=== PATIENT | female | born 1990 | race Caucasian/White ===

== ENCOUNTER 2020-09-28 12:25 | Inpatient (IN) | payer OTHER ==
[~2020-09-28] VITALS: Ht 160 cm; Wt 56.7 kg
[2020-09-28 12:26] VITALS: BP 141/89
[2020-09-28 12:50] LABS: URINE BILIRUBIN NEGATIVE (Negative); URINE BLOOD 3+ (Negative); URINE CLARITY SL CLOUDY; URINE COLOR YELLOW; URINE GLUCOSE-RANDOM* NEGATIVE (Negative); URINE KETONES NEGATIVE (Negative); URINE LEUKOCYTES-REFLEX 2+ (Negative); URINE NITRITE-REFLEX NEGATIVE (Negative); URINE PROTEIN (DIPSTICK) 2+ (Negative); URINE UROBILINOGEN 0.2 E.U./dl (0.2-1.0)
[2020-09-28] MEDS ORDERED: VITAMIN B-121000 MC2 PO (12:50)
[2020-09-28] MEDS ORDERED: NOXIFOL-D32500 UNIT PO (12:51)
[2020-09-28] MEDS ORDERED: IRON18 M1 PO (12:52)
[2020-09-28] MEDS ORDERED: SODIUM BICARBO650 M3 PO (12:52)
[2020-09-28] MEDS ORDERED: NORETHINDRONE AC5 M2 PO (12:53)
[2020-09-28] MEDS ORDERED: NORVASC5 MG PO (12:53)
[2020-09-28 13:00] LABS: LYMPHOCYTES 22.4 % (24.0-44.0); WBC 5.3 thou/uL (4.0-11.0)
[2020-09-28 13:02] LABS: ABSOLUTE NEUTROPHILS 3.7 thou/uL (1.4-8.2); BASOPHILS 0.6 % (0.0-2.0); EOSINOPHILS 2.1 % (0.0-3.0); MCH 31.9 pg (26.0-34.0); MCHC 34.4 g/dL (28.0-37.0); MCV 92.9 fL (80.0-100.0); MONOCYTES 4.6 % (1.0-8.0); PLATELET COUNT 218 thou/uL (150-400); POLYS 70.3 % (36.0-66.0); RBC 2.03 mil/uL (4.20-5.00); RDW 13.4 % (10.5-14.5)
[2020-09-28 13:03] LABS: CALCIUM 7.2 mg/dL (8.5-10.1); CREATININE 5.5 mg/dL (0.6-1.0); POTASSIUM 3.8 mmol/L (3.5-5.1)
[2020-09-28 13:04] LABS: HEMATOCRIT 18.9 % (37.0-47.0)
[2020-09-28 13:05] LABS: HEMOGLOBIN 6.5 gm/dL (12.0-15.0)
[2020-09-28 13:16] LABS: CASTS None Seen /LPF (None Seen); SQUAMOUS >10 Many /LPF (0-3)
[2020-09-28 13:18] LABS: BACTERIA-REFLEX 1-9 Few /HPF (None Seen); CRYSTALS None Seen /LPF (None Seen)
[2020-09-28 13:19] LABS: WBC CLUMPS Few (None Seen)
[2020-09-28 14:42] VITALS: BP 122/95
--- NOTE | 2020-09-28 15:35 | NUR ---
VERBAL AND WRITTEN CONSENT FOR A BLOOD TRANFUSION WAS OBTAINED FROM THE PT. PT STATED SHE HAD A PRIOR BLOOD TRANSFUSION IN 2020 AND DID NOT HAVE ANY ADVERSE REACTIONS.
[2020-09-28 15:47] VITALS: BP 139/93; BP 142/93; BP 142/94; BP 146/95
[2020-09-28 19:34] LABS: HEMOGLOBIN 6.8 gm/dL (12.0-15.0)
[2020-09-28 19:35] LABS: HEMATOCRIT 19.5 % (37.0-47.0)
--- NOTE | 2020-09-28 19:40 | NUR ---
DR MORALES PAGED REGARDING CRITICAL LABS
[2020-09-29] VITALS (7 sets, daily range): BP systolic 135–179; BP diastolic 11–110
[2020-09-29 05:38] LABS: CALCIUM 7.3 mg/dL (8.5-10.1); CREATININE 4.9 mg/dL (0.6-1.0); POTASSIUM 3.9 mmol/L (3.5-5.1)
[2020-09-29 06:06] LABS: HEMOGLOBIN 6.8 gm/dL (12.0-15.0); RBC 2.13 mil/uL (4.20-5.00)
[2020-09-29 06:08] LABS: MCH 31.7 pg (26.0-34.0); MCHC 34.2 g/dL (28.0-37.0); MCV 92.8 fL (80.0-100.0); RDW 13.8 % (10.5-14.5); WBC 5.6 thou/uL (4.0-11.0)
[2020-09-29 06:12] LABS: HEMATOCRIT 19.8 % (37.0-47.0)
--- NOTE | 2020-09-29 06:54 | NUR ---
Patient is asymptomatic. Blood increased to 120 ml/hr
--- NOTE | 2020-09-29 07:07 | NUR ---
ATTEMPTED TO CALL REPORT. WAS PLACED ON HOLD. NO ONE ANSWERED THE PHONE. DAY CHARGE NURSE NOTIFIED THAT PATIENT COULD BE TRANSPORTED AND THE FLOOR CAN CALL BACK FOR REPORT
--- NOTE | 2020-09-29 11:03 | NUR ---
UNIT OF BLOOD THAT WAS STARTED IN THE ED COMPLETED AT 0930 WITH OUT ANY ISSUES OR REACTIONS.
[2020-09-29 12:57] LABS: HEMATOCRIT 24.3 % (37.0-47.0); HEMOGLOBIN 8.3 gm/dL (12.0-15.0)
--- NOTE | 2020-09-30 04:42 | NUR ---
PT BEEN RESTING IN NO ACUTE DISTRESS.A/OX4.PT BEEN SLEEPING MOST OF THE NOC W/O ANY CONCERNS JUST A LITTLE WORRIED OF HER HEALTH AND HER KIDS HOPING TO GO HOME TODAY AND MAYBE SEE HER DOCTOR'S AT [facility].EMOTIONAL SUPPORT PROVIDED.PT STATED THAT IT SEEMS LIKE THE NEW MEDICINE THAT SHE WAS ORDERED IS HELPING SINCE SHE HASNT BEEN BLEEDING HEAVILY TONIGHT.DENIES ANY OTHER CONCERNS.WILL CONT TO MONITOR PER POC.
[2020-09-30 05:28] LABS: HEMATOCRIT 22.8 % (37.0-47.0); HEMOGLOBIN 7.9 gm/dL (12.0-15.0); MCH 31.8 pg (26.0-34.0); MCHC 34.7 g/dL (28.0-37.0); MCV 91.8 fL (80.0-100.0); RBC 2.49 mil/uL (4.20-5.00); RDW 13.9 % (10.5-14.5); WBC 6.6 thou/uL (4.0-11.0)
[2020-09-30 05:50] LABS: CALCIUM 7.5 mg/dL (8.5-10.1); CREATININE 4.6 mg/dL (0.6-1.0)
[2020-09-30 06:23] VITALS: BP 152/100
[2020-09-30 08:00] VITALS: BP 164/101
[2020-09-30 08:20] VITALS: BP 164/101
[2020-09-30] MEDS ORDERED: MEDROXYPROGEST2.5 MG PO (09:15)
[2020-09-30 10:04] VITALS: BP 164/101
--- NOTE | 2020-09-30 10:55 | NUR ---
Assumed pt care at 7am.Pt in bed resting and very anxious about going home today.Assessment completed.vss but elevated bp noted. Norvasc given with am meds.Dr Tilley here,dc order noted.Dc summary compile and reviewed with pt. At 1030,pt dc [place] accompanied by hat finisher.
[2020-09-30] MEDS ORDERED: NORVASC5 MG PO (13:37)
[2020-10-01] MEDS ORDERED: MEDROXYPROGEST2.5 MG PO (12:17)
== END 2020-09-30 10:30 | disposition home or self-care (01) | DRG 760 ==
LOC: ER 12:25 → EROBS 15:39 → 4W 17:00 → EROBS 17:00 → 4W 09-29 07:12
PROVIDERS: Nurse Practitioner; Nurse Practitioner Acute Care; ADMIT Internal Medicine; ATTEND Internal Medicine
PROC: 30233N1 Transfusion of Nonautologous Red Blood Cells into Peripheral Vein, Percutaneous Approach (ICD-10-PCS; principal; 2020-09-28)
DX: N93.9 Abnormal uterine and vaginal bleeding, unspecified (principal); D62 Acute posthemorrhagic anemia; N17.9 Acute kidney failure, unspecified; N39.0 Urinary tract infection, site not specified; I12.0 Hypertensive chronic kidney disease with stage 5 chronic kidney disease or end stage renal disease; N18.5 Chronic kidney disease, stage 5; N92.1 Excessive and frequent menstruation with irregular cycle; Z79.899 Other long term (current) drug therapy
CPT/HCPCS: 10045